=== PATIENT | male | born 1995 | race African-American/Black ===

== ENCOUNTER 2016-11-14 02:13 | Emergency (ER) | payer OTHER ==
[2016-11-14 02:36] VITALS: BP 136/74; PULSE 80; TEMP 98.2; BMI 27.4
--- NOTE | 2016-11-14 02:55 | PDOC ---
History of Present Illness - General History Source: Patient Exam Limitations: No Limitations - History of Present Illness Initial Comments: 11/14/16 03:01 The patient is a 21 year old male with no significant past medical history who presents to the ED with complaints of a ring getting stuck in his finger. The patient reports he put on a gold ring on his left 4th digit and he is unable to take it off. He notes edema to his left 4th digit. Denies fevers or chills. Denies any other symptoms. <Melissa Leal - Last Filed: 11/14/16 03:01> - General History Source: Patient Exam Limitations: No Limitations <Rich Drummond - Last Filed: 11/14/16 03:10> - General Chief Complaint: Edema Stated Complaint: SWOLLEN FINGER Time Seen by Provider: 11/14/16 02:31 Past History <Melissa Lela - Last Filed: 11/14/16 03:01> - Immunization History Immunization Up to Date: Yes - Psycho/Social/Smoking Cessation Hx Suicidal Ideation: No Smoking History: Never smoked Have you smoked in the past 12 months: No Information on smoking cessation initiated: No Hx Alcohol Use: No Drug/Substance Use Hx: No Substance Use Type: None <Rich Drummond - Last Filed: 11/14/16 03:10> - Past Medical History Allergies/Adverse Reactions: Allergies Allergy/AdvReac Type Severity Reaction Status Date / Time No Known Allergies Allergy Verified 11/14/16 02:30 Home Medications: Ambulatory Orders NK [No Known Home Medication] 11/14/16 Review of Systems - Review of Systems Able to Perform ROS?: Yes Comments:: 11/14/16 03:01 GENERAL/CONSTITUTIONAL: No fever or chills. No weakness. HEAD, EYES, EARS, NOSE AND THROAT: No change in vision. No ear pain or discharge. No sore throat. CARDIOVASCULAR: No chest pain or shortness of breath. RESPIRATORY: No cough, wheezing, or hemoptysis. GASTROINTESTINAL: No nausea, vomiting, diarrhea or constipation. GENITOURINARY: No dysuria, frequency, or change in urination. MUSCULOSKELETAL: No joint or muscle swelling or pain. No neck or back pain. EXTREMITIES: + ring stuck on finger SKIN: No rash NEUROLOGIC: No headache, vertigo, loss of consciousness, or change in strength/ sensation. ENDOCRINE: No increased thirst. No abnormal weight change. HEMATOLOGIC/LYMPHATIC: No anemia, easy bleeding, or history of blood clots. ALLERGIC/IMMUNOLOGIC: No hives or skin allergy. All Other Systems: Reviewed and Negative <Melissa Leal - Last Filed: 11/14/16 03:01> *Physical Exam - Vital Signs Last Vital Signs Temp Pulse Resp BP Pulse Ox 98.2 F 80 20 136/74 99 11/14/16 02:30 11/14/16 02:30 11/14/16 02:30 11/14/16 02:30 11/14/16 02:30 - Physical Exam Comments: 11/14/16 03:01 GENERAL: Awake, alert, and fully oriented, in no acute distress HEAD: No signs of trauma EYES: PERRLA, EOMI, sclera anicteric, conjunctiva clear ENT: Auricles normal inspection, hearing grossly normal, nares patent, oropharynx clear without exudates. Moist mucosa NECK: Normal ROM, supple, no lymphadenopathy, JVD, or masses LUNGS: Breath sounds equal, clear to auscultation bilaterally. No wheezes, and no crackles HEART: Regular rate and rhythm, normal S1 and S2, no murmurs, rubs or gallops ABDOMEN: Soft, nontender, normoactive bowel sounds. No guarding, no rebound. No masses EXTREMITIES: + left 4th digit sensation intact, gold ring is stuck with mild swelling distally. Normal range of motion, no edema. No clubbing or cyanosis. No cords, erythema, or tenderness NEUROLOGICAL: Normal speech SKIN: Warm, Dry, normal turgor, no rashes or lesions noted. <Melissa Leal - Last Filed: 11/14/16 03:01> - Vital Signs Last Vital Signs Temp Pulse Resp BP Pulse Ox 98.2 F 80 20 136/74 99 11/14/16 02:30 11/14/16 02:30 11/14/16 02:30 11/14/16 02:30 11/14/16 02:30 <Rich Drummond - Last Filed: 11/14/16 03:10> Medical Decision Making - Medical Decision Making 11/14/16 03:05 A portion of this note was documented by scribe services under my direction. I have reviewed the details of the note, within reason, and agree with the documentation with the following case summary and management plan written by me. Patient treated in the ED. Nursing notes are reviewed and incorporated into the medical decision-making. Vital signs reviewed. Peripheral IV access obtained by the nurse, laboratory studies are drawn and sent, reviewed and interpreted by myself. Vital Signs Temp Pulse Resp BP Pulse Ox 98.2 F 80 20 136/74 99 11/14/16 02:30 11/14/16 02:30 11/14/16 02:30 11/14/16 02:30 11/14/16 02:30 21-year-old male with no medical history, [id number], presents with stuck Goldring on left fourth finger. Patient put on realizes too tight and I will take her off. Came to the ED for further evaluation. Patient is neurovascular intact. Utilizing a ring cutter, we successfullywere able to take off the ring. Patient reports intermittent relief and will go home. Hand elevation and follow- up with Dr. Etienne discussed the physical exam findings, ancillary test results and final diagnoses with the patient. I answered all of the patient's questions. The patient was satisfied with the care received and felt comfortable with the discharge plan and treatment plan. The patient will call their primary care physician within 24 hours to arrange follow-up and will return to the Emergency Department with any new, persistant or worsening symptoms. <Rich Drummond - Last Filed: 11/14/16 03:10> *DC/Admit/Observation/Transfer - Attestations Scribe Attestion: 11/14/16 03:03 Documentation prepared by Melissa Leal, acting as medical physics researcher for Rich Drummond MD <Melissa Leal - Last Filed: 11/14/16 03:01> - Discharge Dispostion Admit: No <Rich Drummond - Last Filed: 11/14/16 03:10> Diagnosis at time of Disposition: Foreign body - Discharge Dispostion Disposition: HOME Condition at time of disposition: Stable - Patient Instructions Additional Instructions: You have had a ring cut off. Please follow up with your doctor.
== END 2016-11-14 03:15 | disposition home or self-care (01) ==
LOC: JER 02:13
DX: S60.445A External constriction of left ring finger, initial encounter (principal); W49.04XA Ring or other jewelry causing external constriction, initial encounter; Y93.89 Activity, other specified; Y92.89 Other specified places as the place of occurrence of the external cause; Y99.8 Other external cause status
CPT/HCPCS: 99281-25